=== PATIENT | female | born 1950 | race Caucasian/White ===

== ENCOUNTER → 2021-01-06 11:18 | Outpatient (BNVA) | payer MEDICARE, SELFPAY | PROVIDERS: Family Provider Nurse Practitioner; Visit Provider Nurse Practitioner Family | DX: M17.12 Unilateral primary osteoarthritis, left knee (principal) | CPT/HCPCS: 73562 ==

== ENCOUNTER → 2021-03-30 14:01 | Outpatient (BNVA) | payer MEDICARE, SELFPAY | PROVIDERS: Family Provider Nurse Practitioner; Referring Provider Nurse Practitioner Family; Visit Provider Nurse Practitioner Family | DX: M79.672 Pain in left foot (principal); M21.612 Bunion of left foot; M20.62 Acquired deformities of toe(s), unspecified, left foot | CPT/HCPCS: 73630 ==

== ENCOUNTER → 2025-07-31 10:46 | Outpatient (BNVA) | payer MEDICARE, SELFPAY | PROVIDERS: PCP Nurse Practitioner Family; Visit Provider Podiatrist Foot & Ankle Surgery | DX: M79.671 Pain in right foot (principal); M79.672 Pain in left foot; M20.11 Hallux valgus (acquired), right foot; M20.41 Other hammer toe(s) (acquired), right foot; M77.41 Metatarsalgia, right foot; M19.071 Primary osteoarthritis, right ankle and foot | CPT/HCPCS: 73630; 99204 ==

== ENCOUNTER 2025-09-08 05:32 | Day surgery (SDC) | payer MEDICARE, SELFPAY ==
--- NOTE | 2025-09-06 10:55 | P.ANESASSM_ITS ---
Pre-Anesthetic Assessment Height/Weight: Height 5 ft 4 in Preop Diagnosis: Right bunion Operation Date: 09/08/25 07:00 Proposed Procedures p Bunionectomy Bo(Right) - Karthik Torrez DPM s Casey Bunionectomy(Right) - Karthik Torrez DPM s second tarsal Juan osteotomy(Right) - Karthik Torrez DPM s second digit and third digit proximal interphalangeal joint arthrodesis(Right) - Karthik Torrez DPM s Tendon Transfer second digit and third digit flexor to extensor tendon transferr Foot(Right) - Karthik Torrez DPM Was Beta Anna taken within 24 hours: N/A Was Clonidine taken within 24 hours: N/A Social No alcohol and No tobacco Exam alert, oriented x 3 and clear to auscultation bilaterally PACs Airway Submandibular: within normal limits Cervical ROM: within normal limits Mallampati: Class III Dentition: false and partials Anesthetic Plan ASA status: 3 Anesthesia: General Other: No prior issues with anesthesia, patient has alpha gal. Anesthesia team aware NPO since yesterday evening History of hypertension on lisinopril and verapamil GERD, controlled with omeprazole Hypothyroidism on Synthroid Patient had labs done on August 24 which were acceptable for procedure today Plan for general anesthesia with local view surgeon Medications/Allergies Home Medications ?Medication ?Instructions ?Recorded ?Confirmed ?Last Taken ?Type alprazolam 0.5 mg tablet 0.5 mg PO TID 07/31/2509/0409/08/25 04:00 History cyclobenzaprine 10 mg tablet 10 mg PO TID PRN Muscle S pasm 07/31/25 09/04/25 09/07/25 05:00 History estradiol 0.5 mg tablet 0.5 mg PO DAILY 07/31/2509/07/25 05:00 History hydralazine 10 mg tablet 10 mg PO TID 07/31/2509/08/25 04:00 History levothyroxine 25 mcg tablet 25 mcg PO DAILY 07/31/25 1 09/08/25 04:00 History (Levoxyl) meloxicam 15 mg tablet 15 mg PO DAILY 07/31/2508/0809/07/25 05:00 History omeprazole 40 mg capsule,delayed 40 mg PO BID 07/31/25 09/04/25 09/07/25 05:00 History release potassium chloride 10 mEq 10 meq PO BID 07/31/2509/0409/07/25 05:00 History tablet,extended release(part/cryst) (Anujor-Con M) pramipexole 1 mg tablet 1 mg PO DAILY 07/31/2509/0409/07/25 05:00 History rosuvastatin 20 mg tablet 20 mg PO DAILY 07/31/2508/0809/07/25 05:00 History torsemide 20 mg tablet 20 mg PO DAILY 07/31/2508/0809/07/25 05:00 History tramadol 50 mg tablet 50 mg PO Q8H PRN Pain, Moder ate 07/31/25 09/04/25 09/07/25 05:00 History verapamil 80 mg tablet 80 mg PO BID 07/31/2509/07/25 05:00 History lisinopril 40 mg tablet 40 mg PO DAILY 09/04/2508/0809/07/25 05:00 History vitamin B complex 1 tab PO DAILY 09/04/2508/0809/04/25 History vitamin D3-vitamin K2 1 tab PO DAILY 09/04/2508/0809/04/25 History tramadol 50 mg tablet 50 mg PO Q4H PRN pain #30 ta bs 09/08/25 Unknown Rx Allergies Allergy/AdvReac Type Severity Reaction Status Date / Time Alpha-Gal Allergy ADR-Vomitin Verified 09/04/25 10:08 (Qurzamnur-Vfuhp-3,3-Gala g hydrocodone Allergy ADR-Nausea Verified 09/04/25 10:02 [facility] Anesthesia Social History Smoking and tobacco/nicotine status: never used tobacco/nicotine
--- NOTE | 2025-09-06 10:55 | ANES.PREANE2 ---
Pre-Anesthetic Assessment Height/Weight: Height 5 ft 4 in Preop Diagnosis: Right bunion Operation Date: 09/08/25 07:00 Proposed Procedures p Bunionectomy Bo(Right) - Karthik Torrez DPM s Casey Bunionectomy(Right) - Karthik Torrez DPM s second tarsal Juan osteotomy(Right) - Karthik Torrez DPM s second digit and third digit proximal interphalangeal joint arthrodesis(Right) - Karthik Torrez DPM s Tendon Transfer second digit and third digit flexor to extensor tendon transferr Foot(Right) - Karthik Torrez DPM Was Beta Anna taken within 24 hours: N/A Was Clonidine taken within 24 hours: N/A Social No alcohol and No tobacco Exam alert, oriented x 3 and clear to auscultation bilaterally PACs Airway Submandibular: within normal limits Cervical ROM: within normal limits Mallampati: Class III Dentition: false and partials Anesthetic Plan ASA status: 3 Anesthesia: General Other: No prior issues with anesthesia, patient has alpha gal. Anesthesia team aware NPO since yesterday evening History of hypertension on lisinopril and verapamil GERD, controlled with omeprazole Hypothyroidism on Synthroid Patient had labs done on August 24 which were acceptable for procedure today Plan for general anesthesia with local view surgeon Medications/Allergies Home Medications ?Medication ?Instructions ?Recorded ?Confirmed ?Last Taken ?Type alprazolam 0.5 mg tablet 0.5 mg PO TID 07/31/25 09/04/25 09/08/25 04:00 History cyclobenzaprine 10 mg tablet 10 mg PO TID PRN Muscle Spasm 07/31/25 09/04/25 09/07/25 05:00 History estradiol 0.5 mg tablet 0.5 mg PO DAILY 07/31/25 09/04/25 09/07/25 05:00 History hydralazine 10 mg tablet 10 mg PO TID 07/31/25 09/04/25 09/08/25 04:00 History levothyroxine 25 mcg tablet 25 mcg PO DAILY 07/31/25 09/04/25 09/08/25 04:00 History (Levoxyl) meloxicam 15 mg tablet 15 mg PO DAILY 07/31/25 09/04/25 09/07/25 05:00 History omeprazole 40 mg capsule,delayed 40 mg PO BID 0909/04/25 09/07/25 05:00 History release potassium chloride 10 mEq 10 meq PO BID 07/31/25 09/04/25 09/07/25 05:00 History tablet,extended release(part/cryst) (Brittany Enamorado) pramipexole 1 mg tablet 1 mg PO DAILY 07/31/25 09/04/25 09/07/25 05:00 History rosuvastatin 20 mg tablet 20 mg PO DAILY 07/31/25 09/04/25 09/07/25 05:00 History torsemide 20 mg tablet 20 mg PO DAILY 07/31/25 09/04/25 09/07/25 05:00 History tramadol 50 mg tablet 50 mg PO Q8H PRN Pain, Moderate 07/31/25 09/04/25 09/07/25 05:00 History verapamil 80 mg tablet 80 mg PO BID 07/31/25 09/04/25 09/07/25 05:00 History lisinopril 40 mg tablet 40 mg PO DAILY 09/04/25 09/04/25 09/07/25 05:00 History vitamin B complex 1 tab PO DAILY 09/04/25 09/04/25 09/04/25 History vitamin D3-vitamin K2 1 tab PO DAILY 09/04/25 09/04/25 09/04/25 History tramadol 50 mg tablet 50 mg PO Q4H PRN pain #30 tabs 09/08/25 Unknown Rx Allergies Allergy/AdvReac Type Severity Reaction Status Date / Time Alpha-Gal Allergy ADR-Vomitin Verified 09/04/25 10:08 (Rqcxivknw-Ihdfu-6,3-Gala g hydrocodone Allergy ADR-Nausea Verified 09/04/25 10:02 [facility] Anesthesia Social History Smoking and tobacco/nicotine status: never used tobacco/nicotine
[2025-09-08] VITALS (11 sets, daily range): BP systolic 148–193; BP diastolic 80–97; PULSE 62–87; RESP 11–18; TEMP 36.2–36.9; O2SAT 93–99; BMI 31.9
--- NOTE | 2025-09-08 | XR_ITS ---
WS: [id number] Exam: XR foot RT 2V [id number] Date/Time of Exam: 09/08/2025 12:00 AM Reason For Exam: ight lyubov/jazmín bunionectomy, 2nd metatarsal carlos osteotomy Single intraoperative AP C-arm image of the RIGHT foot is submitted. The image depicts osteotomies of the first metatarsal and first proximal phalanx with screw fixation. There is also a screw placed in the head of the second metatarsal. An axial pin superimposes the second toe. Image was obtained for intraoperative visualization purposes.
--- NOTE | 2025-09-08 06:48 | W.PM.OPSUD ---
Surgery/Procedure H&P Update DATE OF PROCEDURE: September 08, 2025 DATE H&P PERFORMED: 08/20/25 H&P UPDATE INFORMATION: I have reviewed H&P completed within last 30 days, I have examined patient prior to procedure, No changes to prior documentation, H&P to be scanned into chart and Risks and benefits of the procedure reviewed PREOP DIAGNOSIS: Right foot hallux valgus, 2nd and 3rd hammertoes PLANNED PROCEDURE: Operation Date: 09/08/25 07:00 Proposed Procedures p Bunionectomy Bo(Right) - Karthik Torrez DPM s Casey Bunionectomy(Right) - STACEY Mathew second tarsal Juan osteotomy(Right) - STACEY Mathew second digit and third digit proximal interphalangeal joint arthrodesis(Right) - STACEY Mathew Tendon Transfer second digit and third digit flexor to extensor tendon transferr Foot(Right) - Karthik Torrez DPM
[2025-09-08] MEDS: ceFAZolin 2,000 mg SDV 2000 MG IVP (07:08)
[2025-09-08] MEDS: BUPivacaine 0.5% INJ 30 mL XX (07:39)
[2025-09-08] MEDS: labetalol 5 mg/mL SDV 20mL IVP (09:04)
--- NOTE | 2025-09-08 09:05 | P.BOP_ITS ---
Date of procedure: 09/08/25 Surgeon name: Dr. Karthik Torrez, DPM Water Resource Manager(s) name(s): Shlomo Procedure(s) performed: Right lyubov/jazmín bunionectomy, 2nd metatarsal carlos osteotomy, 2nd digit hammertoe repair with PIPJ arthrodesis Description of findings: Right foot bunion and 2nd toe hammertoe Estimated blood loss: 10cc Tourniquet time: 79 minutes Specimen(s) removed: none Post-operative diagnosis: Right hallux valgus, hammertoe second toe
--- NOTE | 2025-09-08 09:07 | P.OP_ITS ---
Operative Report Date of procedure: September 08, 2025 Surgeon: Karthik Torrez DPM Procedure: Date of procedure: 09/08/2025 Pre-op diagnosis: Right hallux valgus, metatarsalgia, second hammertoe Post-op diagnosis: Same Post-op findings: See above Procedure done: 1. Right Bo Ulysses bunionectomy CPT 76877 2. Right second metatarsal Juan osteotomy CPT 79932 3. Right second digit proximal interphalange joint arthrodesis CPT 73263 Implants: 4.0 and 3.5 as well as 3.0 JM screws, 2 oh headed short thread screw and 0.045 K wire all from [employer] Specimens removed: None Surgeon: Dr. Karthik Torrez DPM Lithographic Press Feeder: Shlomo Estimated blood loss: 10 cc Tourniquet time: 79 minutes Complications: None Patient is a 75-year-old female that has a history of right bunion and hammertoe pain as well as metatarsalgia. The patient has had the aforementioned chief complaint for some time. Conservative treatment measures have been attempted and the patient has opted for surgical intervention at this time. A lengthy discussion regarding the procedure, including risks and complications has been had with the patient and is noted in the recent clinic note. Written and verbal consent have been obtained. All patient questions have been answered to the patient?s satisfaction. No written or verbal guarantees have been given or implied. The patient has been NPO since midnight. The history has been reviewed and the history and physical is current. The signed consent was confirmed and placed in the patient chart. Patient imaging has been reviewed and is consistent with the diagnosis. Under mild sedation, the patient was brought into the operating room and placed on the table in the supine position. IV antibiotics were given by the anesthesia team as preoperative surgical prophylaxis. IV sedation was then performed by the anesthesiateam. A pneumatic tourniquet was then placed about the right ankle. The operative extremity was then prepped and draped in the usual fashion. The extremity was then elevated and exsanguinated before the tourniquet was inflated to 250 mmHg. After inflation, the following procedure was then performed. Attention was directed to the right foot where a stab incision was made medial aspect of first metatarsal neck using a #15 blade. Mosquito was used to bluntly dissect down to the level of the first metatarsal. Maribel bur was inserted into incision and first metatarsal osteotomy was made. Capital fragment was translated in the lateral direction in the transverse plane it was temporarily fixated with 2 guidewires. Next #15 blade was used to make a stab incision at the base of the wires. The wires were overdrilled using cannulated drill system before a 4.0 and 3.5 screw were inserted over the wires and across the osteotomy site. Good positioning of the screws was noted clinically as well as on C-arm imaging. Attention was then directed to the medial aspect of the proximal phalanx where a 15 blade was used to make a stab incision. Maribel bur was then inserted into this incision and an Ulysses osteotomy was performed. A 3.0 screw was inserted over the wire across the osteotomy site for compression of the osteotomy. Good positioning of the screw was noted. Attention was then directed to the adjacent second digit. A 4 cm incision was made over the digit extending from the proximal phalangeal joint down to the metatarsophalangeal joint. The second metatarsal phalangeal joint capsule was incised to expose the underlying second metatarsal head. Sagittal bone saw was used to perform a Juan osteotomy. Capital fragment was translated proximally a 2.0 headed short thread screw was then used to fixate the while osteotomy. Attention was then directed to the proximal interphalangeal joint. Sagittal bone saw was used to remove the articular cartilage. A guidewire was then driven in the base of the intermediate phalanx at the distal aspect of the digit before being driven in retrograde fashion back in the proximal phalanx. Good position of the wire was noted. All incisions were irrigated with copious amounts of sterile saline. Attention was then directed to closure. Deep tissue was closed with 3-0 Vicryl including extensor tendon repair which was incised to expose the underlying proximal interphalangeal joint. Skin was closed with 4-0 nylon in horizontal mattress fashion. Incisions were dressed with Xeroform, 4 x 4 gauze, Kerlix, Stefan. Second digit wire was bent and capped. Tourniquet was let down and good hyperemic response was noted to all digits of the right foot. The patient tolerated the procedure and anesthesia well and without complicati on. The patient was transported from the operating room to the recovery room with vital signs stable and vascular status intact to all digits of the right foot. The patient was given both written and verbal instructions to remain weightbearing as tolerated in cam boot to the operative extremity, to keep dressings/splint clean, dry and intact and to take pain medication as directed. The patient will follow-up in the outpatient setting at their scheduled appointment. The patient was discharged with my personal number and was instructed to call if any questions or issues should arise. They were discharged home once anesthesia criteria was met.
[2025-09-08] MEDS: labetalol 5 mg/mL SDV 20mL 10 MG IVP (09:21)
--- NOTE | 2025-09-08 10:27 | ANE.PACU2 ---
Inpatient post-anesthesia follow up: Airway intact: Yes Vital signs: Temperature 97.6 F Pulse Rate 68 Respiratory Rate 18 Blood Pressure 148/86 Pulse Oximetry 95 Oxygen Delivery Me thod Room Air Oxygen Flow Rate Fraction of Inspir ed Oxygen Hydration adequate: Yes Nausea and vomiting: No Pain level: 1 Mental status: Baseline
== END 2025-09-08 10:27 | disposition home or self-care (01) ==
PROVIDERS: PCP Nurse Practitioner Family; Visit Provider Podiatrist Foot & Ankle Surgery
PROC: (CPT 28296; principal; 2025-09-08 07:00)
PROC: (CPT 28298; 2025-09-08 07:00)
PROC: (CPT 28308; 2025-09-08 07:00)
PROC: (CPT 28299; 2025-09-08 07:00)
PROC: (CPT 28299; 2025-09-08 07:00)
DX: M20.11 Hallux valgus (acquired), right foot (principal); M77.41 Metatarsalgia, right foot; M20.41 Other hammer toe(s) (acquired), right foot; K21.9 Gastro-esophageal reflux disease without esophagitis; I10 Essential (primary) hypertension; E03.9 Hypothyroidism, unspecified
CPT/HCPCS: 28299; 28308; 28285; 73620; 76000; C1713; J0360; J0690; J1100; J1171; J2371; J2405; J3010; J3490; J7030; J9999

== ENCOUNTER → 2025-09-22 15:03 | Outpatient (BNVA) | payer MEDICARE, SELFPAY | PROVIDERS: PCP Nurse Practitioner Family; Visit Provider Podiatrist Foot & Ankle Surgery | DX: M20.41 Other hammer toe(s) (acquired), right foot (principal); M77.41 Metatarsalgia, right foot; M20.11 Hallux valgus (acquired), right foot; M19.071 Primary osteoarthritis, right ankle and foot | CPT/HCPCS: 73630; 99024 ==

== ENCOUNTER → 2025-10-06 13:34 | Outpatient (BNVA) | payer MEDICARE, SELFPAY | PROVIDERS: PCP Nurse Practitioner Family; Visit Provider Podiatrist Foot & Ankle Surgery | DX: M20.41 Other hammer toe(s) (acquired), right foot (principal); M77.41 Metatarsalgia, right foot; M20.11 Hallux valgus (acquired), right foot; M19.071 Primary osteoarthritis, right ankle and foot | CPT/HCPCS: 73630; 99024 ==

== ENCOUNTER → 2025-10-20 13:18 | Outpatient (BNVA) | payer MEDICARE, SELFPAY | PROVIDERS: PCP Nurse Practitioner Family; Visit Provider Podiatrist Foot & Ankle Surgery | DX: Z98.890 Other specified postprocedural states (principal); M20.41 Other hammer toe(s) (acquired), right foot; M20.11 Hallux valgus (acquired), right foot; M77.41 Metatarsalgia, right foot; M19.071 Primary osteoarthritis, right ankle and foot | CPT/HCPCS: 73630; 99024 ==